=== PATIENT | female | born 1980 | race Caucasian/White ===

== ENCOUNTER 2022-02-05 06:45 | Inpatient (IN) | payer OTHER, SELFPAY ==
[2022-02-05] VITALS (38 sets, daily range): BP systolic 130–182; BP diastolic 64–99
[~2022-02-05] VITALS: Ht 160 cm; Wt 78.5 kg
[2022-02-05] MEDS ORDERED: PENICILLIN G POTASSIUM IV 5 MU in D5W MINI-BAG PLUS 100 ML IV STA (07:00)
[2022-02-05] MEDS ORDERED: LR 1,000 ML IV ONE ×2 (07:20→12:50)
[2022-02-05 07:23] LABS: HEMATOCRIT 39.5 % (36.0-47.0); HEMOGLOBIN 13.1 g/dl (12.0-15.5); MEAN CORPUSCULAR HGB CONC 33.2 g/dl (32.0-36.5); MEAN CORPUSCULAR VOLUME 87.4 fl (80.0-96.0); PLATELET COUNT, AUTOMATED 208 10^3/uL (150-450); RED BLOOD COUNT 4.52 10^6/uL (4.00-5.40); WHITE BLOOD COUNT 7.9 10^3/uL (4.0-10.0)
[2022-02-05] MEDS ORDERED: PRENTAB9 PO (07:37)
[2022-02-05] MEDS ORDERED: PEPC10TA6 PO (07:37)
[2022-02-05] MEDS ORDERED: HOME MED LIST COMPLETE! XX SCH (07:40)
[2022-02-05] MEDS ORDERED: OXYTOCIN 30 UNITS IN 0.9% NaCl 500ML IV BAG (J2590) As Ordered ONE (07:50)
[2022-02-05] MEDS ORDERED: OXYTOCIN DRIP 30 UNITS in IV 1 EA IV ONE ×2 (08:15→11:45)
[2022-02-05] MEDS ORDERED: MEASLES,MUMPS,RUBELLA VACCINE INJ (MMR-II) (90707) SC SCH (08:15)
[2022-02-05] MEDS ORDERED: ONDANSETRON 4MG/2ML VIAL IV PRN (08:15)
[2022-02-05] MEDS ORDERED: IBUPROFEN 600MG TAB PO PRN (08:15)
[2022-02-05] MEDS ORDERED: RHOGAM 300 MCG (1500 IU) INJ (J2790) IM SCH (08:15)
[2022-02-05] MEDS ORDERED: ACETAMINOPHEN TAB 650MG DOSE (2X325MG) PO PRN (08:15)
[2022-02-05] MEDS ORDERED: DIBUCAINE 1% OINTMENT 30GM TOP PRN (08:15)
[2022-02-05] MEDS ORDERED: DOCUSATE SODIUM 100MG CAPSULE PO PRN (08:15)
[2022-02-05] MEDS ORDERED: METHYLERGONOVINE MALEATE 0.2 MG TAB PO PRN (08:15)
[2022-02-05] MEDS ORDERED: ACETAMINOPHEN 500 MG TAB PO PRN (08:15)
[2022-02-05] MEDS: IBUPROFEN 800 MG TAB PO PRN ×2 (09:49→20:46)
[2022-02-05] MEDS ORDERED: METHYLERGONOVINE MALEATE 0.2 MG/ML VIAL (J2210) IM ONE ×2 (09:55→11:45)
[2022-02-05] MEDS ORDERED: TRANEXAMIC ACID INJection 1,000 MG in D5W 100 ML IV ONE (10:05)
[2022-02-05] MEDS ORDERED: LR 1,000 ML IV SCH (10:45)
[2022-02-05] MEDS ORDERED: PENICILLIN G POTASSIUM IV 2.5 MU in IV 1 EA IV SCH (11:00)
[2022-02-05] MEDS ORDERED: NS 1,000 ML IV SCH (11:25)
[2022-02-05] MEDS ORDERED: TRANEXAMIC ACID 100 MG/ML 10ML VIAL ONE (14:04)
[2022-02-05] MEDS ORDERED: OXYTOCIN 30 UNITS IN 0.9% NaCl 500ML IV BAG (J2590) ONE (14:04)
[2022-02-05] MEDS ORDERED: PROAAER10 INH (14:20)
[2022-02-05] MEDS: PRENATAL VITAMINS CHEWABLE TABLET PO SCH (16:54)
[2022-02-05 18:11] LABS: HEMATOCRIT 29.2 % (36.0-47.0); MEAN CORPUSCULAR HEMOGLOBIN 29.1 pg (27.0-33.0); MEAN CORPUSCULAR HGB CONC 33.9 g/dl (32.0-36.5); MEAN CORPUSCULAR VOLUME 85.9 fl (80.0-96.0); PLATELET COUNT, AUTOMATED 237 10^3/uL (150-450); WHITE BLOOD COUNT 15.8 10^3/uL (4.0-10.0)
[2022-02-05 18:19] LABS: HEMOGLOBIN 9.9 g/dl (12.0-15.5)
[2022-02-05] MEDS: LR 1,000 ML IV SCH (19:35)
[2022-02-06 02:00] VITALS: BP 135/78
[2022-02-06] MEDS: LR 1,000 ML IV SCH ×2 (04:53→11:35)
[2022-02-06 06:00] VITALS: BP 138/78
[2022-02-06] MEDS: IBUPROFEN 800 MG TAB PO PRN (08:45)
[2022-02-06] MEDS: PRENATAL VITAMINS CHEWABLE TABLET PO SCH (08:45)
[2022-02-06 10:00] VITALS: BP 129/73
[2022-02-06 12:05] LABS: AMPHETAMINES URINE REFLEX NEGATIVE (NEGATIVE); BARBITURATES URINE REFLEX NEGATIVE (NEGATIVE); BENZODIAZEPINES URINE REFLEX NEGATIVE (NEGATIVE); CANNABINOIDS URINE REFLEX NEGATIVE (NEGATIVE); COCAINE METABOLITE URINE REFLE NEGATIVE (NEGATIVE); METHADONE URINE REFLEX NEGATIVE (NEGATIVE); OPIATES URINE REFLEX NEGATIVE (NEGATIVE); PHENCYCLIDINE URINE REFLEX NEGATIVE (NEGATIVE)
[2022-02-06 14:00] VITALS: BP 139/83
[2022-02-06 15:04] LABS: HEMATOCRIT 25.7 % (36.0-47.0); HEMOGLOBIN 8.3 g/dl (12.0-15.5); MEAN CORPUSCULAR HEMOGLOBIN 28.3 pg (27.0-33.0); MEAN CORPUSCULAR HGB CONC 32.3 g/dl (32.0-36.5); MEAN CORPUSCULAR VOLUME 87.7 fl (80.0-96.0); PLATELET COUNT, AUTOMATED 211 10^3/uL (150-450); RED BLOOD COUNT 2.93 10^6/uL (4.00-5.40); WHITE BLOOD COUNT 9.9 10^3/uL (4.0-10.0)
[2022-02-06] MEDS ORDERED: BOOSTRIX/ADACEL VACCINE (DIPHTH/PERTUSS/ACELL/TETANUS) 0.5ML SYR IM ONE (16:00)
[2022-02-06 18:00] VITALS: BP 130/80
[2022-02-06] MEDS ORDERED: diphenhydrAMINE 50MG CAP PO ONE (21:00)
[2022-02-07 02:40] VITALS: BP 117/76
[2022-02-07 06:00] VITALS: BP 136/75
[2022-02-07] MEDS: PRENATAL VITAMINS CHEWABLE TABLET PO SCH (08:54)
[2022-02-07 10:51] LABS: HEMATOCRIT 24.9 % (36.0-47.0); HEMOGLOBIN 8.1 g/dl (12.0-15.5); MEAN CORPUSCULAR HEMOGLOBIN 28.5 pg (27.0-33.0); MEAN CORPUSCULAR HGB CONC 32.5 g/dl (32.0-36.5); MEAN CORPUSCULAR VOLUME 87.7 fl (80.0-96.0); PLATELET COUNT, AUTOMATED 251 10^3/uL (150-450); RED BLOOD COUNT 2.84 10^6/uL (4.00-5.40); WHITE BLOOD COUNT 8.3 10^3/uL (4.0-10.0)
== END 2022-02-07 13:05 | disposition home or self-care (01) | DRG 560 ==
LOC: M LDO 06:45 → EDBD 06:57 → M LDI 06:57 → M OBS 18:53
PROVIDERS: ADMIT Advanced Practice Midwife; ATTEND Advanced Practice Midwife
PROC: 10E0XZZ Delivery of Products of Conception, External Approach (ICD-10-PCS; principal; 2022-02-05)
PROC: 0UC97ZZ Extirpation of Matter from Uterus, Via Natural or Artificial Opening (ICD-10-PCS; 2022-02-05)
DX: O99.334 Smoking (tobacco) complicating childbirth (principal); Z37.0 Single live birth; Z3A.38 38 weeks gestation of pregnancy; O09.523 Supervision of elderly multigravida, third trimester; F17.200 Nicotine dependence, unspecified, uncomplicated; O72.1 Other immediate postpartum hemorrhage

== ENCOUNTER → 2025-07-13 | Outpatient (CLI) | payer MEDICAID ==
[~2025-07-13] MED LIST: PEPC10TA6 PO; PRENTAB9 PO; PROAAER10 INH
== END ==
LOC: M OUTALCOH 11:47
PROVIDERS: ATTEND Psychiatry & Neurology Psychiatry
DX: F10.10 Alcohol abuse, uncomplicated (principal); F17.200 Nicotine dependence, unspecified, uncomplicated

== ENCOUNTER 2025-08-09 13:53 | Outpatient (RCR) | payer MEDICAID | END 2025-08-10 | LOC: M OUTALCOH 13:53 | PROVIDERS: ATTEND Psychiatry & Neurology Psychiatry | DX: F17.200 Nicotine dependence, unspecified, uncomplicated (principal); F10.20 Alcohol dependence, uncomplicated ==

== ENCOUNTER 2025-09-05 13:00 | Outpatient (RCR) | payer MEDICAID | END 2025-09-09 | LOC: M OUTALCOH 13:00 | PROVIDERS: ATTEND Psychiatry & Neurology Psychiatry | DX: F17.200 Nicotine dependence, unspecified, uncomplicated (principal); F10.20 Alcohol dependence, uncomplicated | CPT/HCPCS: 99211; G0397 ==

== ENCOUNTER 2025-10-03 12:53 | Outpatient (RCR) | payer MEDICAID | END 2025-10-10 | LOC: M OUTALCOH 12:53 | PROVIDERS: ATTEND Psychiatry & Neurology Psychiatry | DX: F17.200 Nicotine dependence, unspecified, uncomplicated (principal); F10.20 Alcohol dependence, uncomplicated | CPT/HCPCS: 99203; G0397 ==